=== PATIENT | female | born 1995 | race Caucasian/White ===

== ENCOUNTER 2019-05-27 17:02 | Emergency (ER) | payer MEDICAID ==
[2019-05-27 17:29] VITALS: BP 134/74
[2019-05-27] MEDS ORDERED: FAMOTIDINE 20 MG TABLET PO ONE (17:48)
[2019-05-27] MEDS ORDERED: HYDROXYZINE PAMOATE 50 MG CAPSULE PO ONE (17:48)
[2019-05-27] MEDS ORDERED: PREDNISONE 20 MG TABLET PO ONE (17:48)
--- NOTE | 2019-05-27 17:51 | ER Document Report ---
HPI - HPI Patient complains to provider of: Skin rash Time Seen by Provider: 05/27/19 17:43 Onset: Other - three days Onset/Duration: Waxing and waning Pain Level: 5 Context: Patient presents complaining of skin rash for the past 3 days. Patient states that the rash will pop up in some areas resolved and then pop up in other locations. Patient denies any new foods medications or detergents. Patient denies any difficulty breathing or swallowing. Associated Symptoms: Other - Skin rash Exacerbated by: Denies Relieved by: Denies Similar symptoms previously: Yes Recently seen / treated by doctor: No - ROS ROS below otherwise negative: Yes Systems Reviewed and Negative: Yes All other systems reviewed and negative - CONSTITUTIONAL Constitutional: DENIES: Fever - EENT EENT: DENIES: Sore Throat - RESPIRATORY Respiratory: DENIES: Coughing - GASTROINTESTINAL Gastrointestinal: DENIES: Nausea, Patient vomiting - REPRODUCTIVE LMP: 04/07/19 Reproductive: DENIES: : - DERM Skin Problems: Rash Past Medical History - General Information source: Patient - Social History Smoking Status: Current Every Day Smoker Chew tobacco use (# tins/day): No Frequency of alcohol use: None Drug Abuse: None Occupation: None Family History: Reviewed & Not Pertinent, Other - Asthma Patient has suicidal ideation: No Patient has homicidal ideation: No Pulmonary Medical History: Reports: Hx Asthma Surgical Hx: Negative - Immunizations Hx Diphtheria, Pertussis, Tetanus Vaccination: - unk Vertical Provider Document - CONSTITUTIONAL Agree With Documented VS: Yes Exam Limitations: No Limitations General Appearance: WD/WN, No Apparent Distress - INFECTION CONTROL TRAVEL OUTSIDE OF THE [place] IN LAST 30 DAYS: No - HEENT HEENT: Atraumatic, Normal ENT Exam, Normocephalic Notes: No angioedema, no potential airway compromise - NECK Neck: Normal Inspection, Supple. negative: Lymphadenopathy-Left, Lymphadenopathy-Right - RESPIRATORY Respiratory: Breath Sounds Normal, No Respiratory Distress - CARDIOVASCULAR Cardiovascular: Regular Rate, Regular Rhythm, No Murmur - GI/ABDOMEN Gastrointestinal: Abdomen Soft - BACK Back: Normal Inspection - MUSCULOSKELETAL/EXTREMETIES Musculoskeletal/Extremeties: MAEW, FROM - NEURO Level of Consciousness: Awake, Alert, Appropriate Motor/Sensory: No Motor Deficit - DERM Integumentary: Warm, Dry, Rash - Urticarial lesions to right upper extremity, hip area and posterior back Course - Re-evaluation Re-evalutation: 05/27/19 17:49 Patient with urticarial lesions that have been coming and going for the past 3 days. Patient nontoxic in appearance, no concern for anaphylaxis. No concern for any airway compromise. Good return precautions discussed with patient. - Vital Signs Vital signs: Temp Pulse Resp BP Pulse Ox 98.4 F 86 16 134/74 H 95 05/27/19 17:25 05/27/19 17:25 05/27/19 17:25 05/27/19 17:25 05/27/19 17:25 Discharge - Discharge Clinical Impression: Urticaria Condition: Stable Disposition: HOME, SELF-CARE Instructions: Acute Urticaria ([facility]), Steroid Medication Additional Instructions: Return immediately for any new or worsening symptoms Followup with your primary care provider, call tomorrow to make a followup appointment Prescriptions: Hydroxyzine HCl [Atarax 25 mg Tablet] 1 - 2 tab PO QID PRN #20 tablet PRN Reason: Prednisone [Deltasone 10 mg Tablet] 10 mg PO ASDIR PRN #21 tablet PRN Reason: Famotidine [Pepcid 20 mg Tablet] 20 mg PO BID #12 tablet Referrals: [facility] [Provider Group] - Follow up as needed [facility] [Provider Group] - Follow up as needed
== END 2019-05-27 18:07 | disposition home or self-care (01) ==
LOC: ER 17:02
DX: L50.9 Urticaria, unspecified (principal); F17.200 Nicotine dependence, unspecified, uncomplicated
CPT/HCPCS: 99282; J7512

== ENCOUNTER 2019-09-18 19:39 | Emergency (ER) | payer MEDICAID ==
[2019-09-18] MEDS ORDERED: TETRACAINE HCL 0.5% OPH SOLN 4 ML OD ONE ×2 (21:25)
[2019-09-18] MEDS ORDERED: ERYTHROMYCIN 0.5% OPH OINTMENT 3.5 GM (ER DISP) OD PRN (21:59)
[2019-09-18] MEDS ORDERED: CLINDAMYCIN HCL 150 MG CAPSULE PO ONE (21:59)
--- NOTE | 2019-09-18 22:06 | ER Document Report ---
ED General - General Chief Complaint: Eye Pain Stated Complaint: EYE PAIN Time Seen by Provider: 09/18/19 21:19 Primary Care Provider: ION COFFMAN DO [ACTIVE STAFF] - Follow up as needed CHARISMA BARR DO [ACTIVE STAFF] - Follow up as needed Mode of Arrival: Ambulatory Information source: Patient TRAVEL OUTSIDE OF THE [place] IN LAST 30 DAYS: No - HPI Onset: Yesterday Onset/Duration: Gradual Quality of pain: Burning, Fullness, Pressure Associated symptoms: Other - Swelling of area around right eye with pain. Redness of right eye. Exacerbated by: Other - palpation of right eye Relieved by: Denies Similar symptoms previously: No Recently seen / treated by doctor: No Notes: 23 year old female with no significant PMH here in the ER for right eye pain and swelling since yesterday. The patient noticed the pain in her right upper eye lid yesterday and since then she has noticed worsening redness, swelling, and pain in the soft tissue around her right eye. The patient does not have a foreign body sensation in her right eye and she denies vision changes. The patient denies any recent trauma to her right eye. - Related Data Allergies/Adverse Reactions: morphine Allergy (Verified 05/27/19 17:39) Past Medical History - General Information source: Patient - Social History Smoking Status: Current Every Day Smoker Frequency of alcohol use: Occasional Drug Abuse: None Family History: Reviewed & Not Pertinent, Other - Asthma Patient has homicidal ideation: No Pulmonary Medical History: Reports: Hx Asthma - Immunizations Hx Diphtheria, Pertussis, Tetanus Vaccination: - unk Review of Systems - Review of Systems Constitutional: No symptoms reported EENT: Eye pain - right sided, Tearing - right sided, Other - swelling and redness of periorbital area of right eye Cardiovascular: No symptoms reported Respiratory: No symptoms reported Gastrointestinal: No symptoms reported Genitourinary: No symptoms reported Female Genitourinary: No symptoms reported Musculoskeletal: No symptoms reported Skin: No symptoms reported Hematologic/Lymphatic: No symptoms reported Neurological/Psychological: No symptoms reported -: Yes All other systems reviewed and negative Physical Exam - Vital signs Vitals: Temp Pulse Resp BP Pulse Ox 98.4 F 81 14 133/79 H 98 09/18/19 20:05 09/18/19 20:05 09/18/19 20:05 09/18/19 20:05 09/18/19 20:05 - Notes Notes: GENERAL: Well-appearing, well-nourished and in no acute distress. HEAD: Atraumatic, normocephalic. EYES: Pupils equal round and reactive to light, extraocular movements intact, Right conjunctiva injected. Stye on right upper inner eye with purulent drainage. The drainage is actually stuck under the upper lid and acting as a foreign body. No corneal abrasions seen with Hinson Lamp and dye. Periorbital tissue of right eye is erythematous, warm, and tender to palpation consistent with cellulitis. ENT: External ears normal, nares patent, oropharynx clear without exudates. Moist mucous membranes. NECK: Normal range of motion, supple without lymphadenopathy or JVD. LUNGS: Breath sounds clear to auscultation bilaterally and equal. No wheezes rales or rhonchi. HEART: Regular rate and rhythm without murmurs, rubs or gallops. ABDOMEN: Soft, nontender, normoactive bowel sounds. No guarding, no rebound. No masses appreciated. EXTREMITIES: Normal range of motion, no pitting or edema. No clubbing or cyanosis. NEUROLOGICAL: Cranial nerves II through XII grossly intact. Normal speech, normal gait. PSYCH: Normal mood, normal affect. SKIN: Warm, Dry, normal turgor, no rashes or lesions noted. Course - Re-evaluation Re-evalutation: 09/18/19 22:21 The patient seems to have a stye of her right upper eyelid on the inside which drained some purulent material. I irrigated and removed the purulent material with a Qtip. Patient has a periorbital cellulitis as well. Will treat with Erythromycin Eye Ointment and Clindamycin PO and refer to an Eye Doctor. The patient does not wear corrective lenses. - Vital Signs Vital signs: Temp Pulse Resp BP Pulse Ox 97.6 F 85 18 114/86 H 99 09/18/19 21:22 09/18/19 21:22 09/18/19 21:22 09/18/19 21:22 09/18/19 21:22 Procedures - Eye Procedure Right Eye Irrigated w/ Saline (ccs): 5 Foreign body removal: Right - pus from under right eyelid Fluorescein applied: Right - showing no corneal abrasions Discharge - Discharge Clinical Impression: Periorbital cellulitis Qualifiers: Laterality: right Qualified Code(s): L03.213 - Periorbital cellulitis Sty, internal Qualifiers: Laterality: right Eyelid: upper Qualified Code(s): H00.021 - Hordeolum internum right upper eyelid Condition: Stable Disposition: HOME, SELF-CARE Instructions: Cellulitis ([facility]), Sty ([facility]) Additional Instructions: Take oral antibiotics as prescribed and use the Erythromycin Eye ointment 4 times a day. Follow up with one of the Eye Doctors listed in your discharge paper work later this week if symptoms persist. Prescriptions: Clindamycin HCl [Cleocin 150 mg Capsule] 450 mg PO TID #63 capsule Erythromycin Base [Erythromycin Oph 1 Gm Oint Ud] 1 applic OD QID #1 tube Referrals: ION COFFMAN DO [ACTIVE STAFF] - Follow up as needed CHARISMA BARR DO [ACTIVE STAFF] - Follow up as needed
[2019-09-18 22:24] VITALS: BP 128/84
== END 2019-09-18 22:24 | disposition home or self-care (01) ==
LOC: ER 19:39
DX: H00.021 Hordeolum internum right upper eyelid (principal); L03.213 Periorbital cellulitis; H57.11 Ocular pain, right eye; H57.89 Other specified disorders of eye and adnexa; Z88.8 Allergy status to other drugs, medicaments and biological substances; F17.200 Nicotine dependence, unspecified, uncomplicated; J45.909 Unspecified asthma, uncomplicated
CPT/HCPCS: 99283; J3490 ×2